=== PATIENT | male | born 2000 | race Caucasian/White ===

== ENCOUNTER 2020-02-08 09:40 | Emergency (ER) | payer BC ==
[~2020-02-08] VITALS: Ht 190.5 cm; Wt 77.1 kg
[2020-02-08 09:47] VITALS: Ht 190.5 cm; Wt 77.1 kg
[2020-02-08 12:28] VITALS: BP 130/60
== END 2020-02-08 12:28 | disposition home or self-care (01) ==
LOC: ED 09:40
DX: S82.041A Displaced comminuted fracture of right patella, initial encounter for closed fracture (principal); W22.8XXA Striking against or struck by other objects, initial encounter; Y93.89 Activity, other specified; Y92.89 Other specified places as the place of occurrence of the external cause; Y99.8 Other external cause status
CPT/HCPCS: Q0092